=== PATIENT | male | born 1950 | race Caucasian/White ===

== ENCOUNTER 2019-03-12 08:35 | Outpatient (CLI) | payer MEDICARE ==
--- NOTE | 2019-03-12 09:46 | CT ---
EXAM: CT chest without contrast per low-dose cancer screening protocol HISTORY: History of smoking and nicotine dependence COMPARISON: None TECHNIQUE: Multiple contiguous axial images were obtained in a CT of the chest without contrast per l ow-dose cancer screening protocol. Sagittal and coronal reformats were performed. FINDINGS: Pulmonary nodules: There is a cavitary lesion in the right lower lobe measuring 2.3 cm in size. This contains an adjacent 8 mm nodularity of the wall. No other pulmonary nodules are seen. No focal infiltrates are seen. Emphysematous changes are seen in the lungs. Pleural space: No pneumothorax or pleural effusion are seen. Heart: The heart is normal in size. Mediastinum: No hilar or mediastinal lymphadenopathy appreciated on this limited noncontrast examinat ion. Bones: Degenerative changes in the spine.. Visualized subdiaphragmatic structures: Unremarkable. IMPRESSION: Right lower lobe cavitary lesion with nodularity along the wall. This is likely a lung RADS category 3 lesion and a six-month follow-up CT is recommended for further evaluation.
== END 2019-03-12 08:36 | disposition home or self-care (01) ==
LOC: CT 08:35
PROVIDERS: ATTEND Family Medicine
DX: F17.210 Nicotine dependence, cigarettes, uncomplicated (principal); R91.8 Other nonspecific abnormal finding of lung field
CPT/HCPCS: G0297

== ENCOUNTER 2019-10-11 07:59 | Outpatient (CLI) | payer MEDICARE ==
--- NOTE | 2019-10-11 11:31 | CT ---
LOW DENSITY CT SCAN OF THE CHEST WITHOUT IV CONTRAST FOR LUNG CANCER SCREENING: Date: 10/11/2019 HISTORY: Smoking, nicotine dependence, cigarettes, uncomplicated. COMPARISON: 03/12/2019. FINDINGS: The 2.3 cm cavitary lesion in the right lower lobe with adjacent 8.0 mm nodularity of the wall is sta ble. No other pulmonary nodules are seen. Emphysematous changes are redemonstrated. No pneumothoraces, pleural or pericardial effusions are seen. There are degenerative changes in the spine. IMPRESSION: Lung-RADS Category 3. RECOMMENDATION: A 6 month follow-up with LDCT is recommended. POS: ARSENIO
== END 2019-10-11 08:00 | disposition home or self-care (01) ==
LOC: BICCT 07:59
PROVIDERS: ATTEND Family Medicine
DX: R91.8 Other nonspecific abnormal finding of lung field (principal); F17.210 Nicotine dependence, cigarettes, uncomplicated
CPT/HCPCS: G0297

== ENCOUNTER 2020-01-27 12:15 | Outpatient (CLI) | payer MEDICARE ==
[2020-01-27 12:56] LABS: Estimated GFR-MDRD - POC Greater than 90
--- NOTE | 2020-01-27 13:48 | MRI ---
MRI of thebrain with and without contrast: 01/27/2020 COMPARISON:None available HISTORY:Daily headaches, cerebellar ataxia TECHNIQUE: Multiplanar multisequence MR imaging of thebrain with and without IV contrast Findings:The axial diffusion weighted imaging demonstrates no evidence for acute infarction. Axial gr adient echo imaging demonstrates no evidence for intracranial hemorrhage. Incompletely imaged T2 hyperintensity noted in the region of the maxilla on the right anteriorly tomasa uring 1.6 cm. This may represent a cystic maxillary lesion which could be better assessed with skull base CT. There is multifocal periventricular, deep, and subcortical white matter T2 and FLAIR hyperintensity, evidence of small vessel disease. There is no midline shift or mass effect. No ventricular enlargement. The paranasal sinuses and mastoid air cells demonstrate normal signal intensity. Arterial flow voids at the axial level of the skull base appear grossly unremarkable on the T2-weight ed imaging. The postcontrast imaging demonstrates no abnormal enhancement within the brain parenchyma. IMPRESSION: Chronic findings as detailed above. No acute findings are seen. T2 hyperintense maxillary lesion to the left of midline for which follow-up CT may be beneficial.
== END 2020-01-27 12:16 | disposition home or self-care (01) ==
LOC: BICMRI 12:15
PROVIDERS: ATTEND Family Medicine
DX: G11.9 Hereditary ataxia, unspecified (principal); R51.9 Headache, unspecified; J34.89 Other specified disorders of nose and nasal sinuses; R93.89 Abnormal findings on diagnostic imaging of other specified body structures
CPT/HCPCS: 70553; 82565

== ENCOUNTER 2020-06-08 08:37 | Outpatient (CLI) | payer MEDICARE | END 2020-06-08 08:38 | disposition home or self-care (01) | LOC: BICCT 08:37 | PROVIDERS: ATTEND Family Medicine | DX: R91.8 Other nonspecific abnormal finding of lung field (principal); F17.210 Nicotine dependence, cigarettes, uncomplicated; J43.9 Emphysema, unspecified; R59.0 Localized enlarged lymph nodes | CPT/HCPCS: 71271 ==

== ENCOUNTER 2020-06-29 10:33 | Outpatient (CLI) | payer MEDICARE | END 2020-06-29 10:34 | disposition home or self-care (01) | LOC: PET 10:33 | PROVIDERS: ATTEND Internal Medicine Critical Care Medicine | DX: R91.8 Other nonspecific abnormal finding of lung field (principal) | CPT/HCPCS: 78815; A9552 ==